=== PATIENT | male | born 1975 | race Caucasian/White ===

== ENCOUNTER 2018-07-01 10:23 | Outpatient (CLI) | payer OTHER ==
--- NOTE | 2018-07-01 11:21 | RAD ---
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 History of chronic low back pain. FINDINGS: No evidence of compression fracture or significant subluxation. Flexion and extension views reveal no translation of motion of significance. Multilevel facet degenerative sclerosis is seen. There is mul tilevel endplate degenerative change with osteophytosis and disc space narrowing most pronounced at L 4-5 and L5-S1. IMPRESSION: Multilevel degenerative changes in the lumbar spine. No significant subluxation or translational jeet on identified. POS: [facility]
== END 2018-07-01 10:24 | disposition home or self-care (01) ==
LOC: TBSIIMAG 10:23
PROVIDERS: ATTEND Surgery
DX: M51.36 Other intervertebral disc degeneration, lumbar region (principal); M47.816 Spondylosis without myelopathy or radiculopathy, lumbar region
CPT/HCPCS: 72110

== ENCOUNTER 2018-10-02 15:00 | Outpatient (CLI) | payer OTHER ==
--- NOTE | 2018-10-02 16:27 | RAD ---
FOUR VIEWS OF LUMBAR SPINE 10/02/18 HISTORY: Lumbar disc degeneration. Low back pain for ten years. COMPARISON: 07/01/18 FINDINGS: There are four nonribbearing lumbar type vertebral bodies. Degenerative changes are again seen in the lower most levels of the lumbar spine with narrowing of the intervertebral disc spaces and osteophyt e formation. Facet hypertrophic changes are seen at these levels. The vertebral body heights are with in normal limits and there is no fracture or subluxation involving the lumbar spine. Flexion and exte nsion views demonstrate no abnormal translational motion. IMPRESSION: Stable degenerative changes in the lower lumbar spine. No fracture or subluxation is appreciated. POS: [facility]
== END 2018-10-02 15:01 | disposition home or self-care (01) ==
LOC: TBSIIMAG 15:00
PROVIDERS: ATTEND Surgery
DX: M51.36 Other intervertebral disc degeneration, lumbar region (principal); M47.816 Spondylosis without myelopathy or radiculopathy, lumbar region
CPT/HCPCS: 72110